=== PATIENT | female | born 1930 | race Caucasian/White ===

== ENCOUNTER 2017-04-19 21:00 | Observation (INO) | payer MEDICARE, OTHER ==
[2017-04-19 21:03] VITALS: BP 147/67; PULSE 74; RESP 18; TEMP 97.9; O2SAT 96
--- NOTE | 2017-04-19 21:09 | PD ---
Physical Exam Time Seen by Provider: 21:07 Narrative 87yo F c/o vaginal bleeding for a few months. Is ion Coumadin. Bleeding was light, on and off, and tonight is more. Denies lightheadedness, dizziness. Patient seen in triage. VS reviewed. Awaiting bed placement. Data Data Last Documented VS Vital Signs Date Time Temp Pulse Resp B/P Pulse Ox O2 Delivery O2 Flow Rate FiO2 04/19/17 21:03 97.9 74 18 147/67 96 Room Air MDM Supervised Visit with DANETTE: Laura Blancas Apr 19, 2017 21:09
[2017-04-19] MEDS ORDERED: SODIUM CHLORIDE 0.9% FLUSH 10 ML FLUSH IVF PRN (21:15)
[2017-04-19 21:20] VITALS: O2SAT 96
--- NOTE | 2017-04-19 21:25 | PD ---
HPI Chief Complaint: Bleeding Time Seen by Provider: 21:12 Travel History International Travel<30 days: No Contact w/Intl Traveler<30days: No Traveled to known affect area: No History of Present Illness HPI This is an 87-year-old female with a history of atrial fibrillation, hypertension, who presents today with complaints of vaginal bleeding 2 days. The patient states it started yesterday with just spotting however today it's increased to a large amount of blood coming from her vagina. The patient denies any history of previous significant vaginal bleeding. She states that a few months ago she had some spotting however never like this before. She denies any shortness of breath and she does report some mild weakness. There is no dizziness or palpitations. There are no other complaints time my examination. PFSH Past Medical History Arthritis: No Asthma: No Atrial Fibrillation: Yes Autoimmune Disease: No Blood Disorders: No Anxiety: No Depression: No Heart Rhythm Problems: Yes (murmur ) Cancer: No High Cholesterol: No Chemotherapy: No Chest Pain: No Congestive Heart Failure: No COPD: No Cerebrovascular Accident: No Diabetes: No Diminished Hearing: No GERD: No Glaucoma: No Headaches: No Hepatitis: No Hiatal Hernia: No Hypertension: No Kidney Stones: No Myocardial Infarction: No Radiation Therapy: No Renal Failure: No Seizures: No Sickle Cell Disease: No Sleep Apnea: No Thyroid Disease: No Ulcer: No ?: Not Past Surgical History Abdominal Surgery: No AICD: No Cardiac Surgery: No Ear Surgery: No Endocrine Surgery: No Eye Surgery: No Genitourinary Surgery: No Gynecologic Surgery: No Oral Surgery: Yes (ROOT CANANL) Pacemaker: No Thoracic Surgery: No Social History Alcohol Use: No Tobacco Use: No (CIGARETTES,QUIT 12 YEARS AGO) Substance Use: No Allergies-Medications (Allergen,Severity, Reaction): Coded Allergies: Sulfa (Verified Allergy, Unknown, UNKNOWN, 04/19/17) Reported Meds & Prescriptions Reported Meds & Active Scripts Active Reported Warfarin 7.5 Mg Tab 7.5 Mg PO MONDAY Warfarin 7.5 Mg Tab 7.5 Mg PO DAILY Warfarin 7.5 Mg Tab 7.5 Mg PO MONDAY Warfarin 5 Mg Tab 5 Mg PO DAILY Amlodipine (Amlodipine Besylate) 5 Mg Tab 5 Mg PO DAILY Metoprolol Tartrate 50 Mg Tab 50 Mg PO BID Ramipril 10 Mg Cap 10 Mg PO DAILY Klor-Con 8 (Potassium Chloride) 8 Meq Tab 8 Meq PO DAILY Hydrochlorothiazide 25 Mg Tab 25 Mg PO DAILY Digoxin 0.25 Mg Tab 0.25 Mg PO DAILY Review of Systems Except as stated in HPI: all other systems reviewed are Neg Eyes: No: Blurred Vision HENT: No: Headaches, Vertigo, Lightheadedness Cardiovascular: Positive: Irregular Rhythm (atrial fibrillation), No: Chest Pain or Discomfort, Palpitations Respiratory: No: Cough, Shortness of Breath Gastrointestinal: No: Nausea, Vomiting, Abdominal Pain Genitourinary: Positive: Vaginal Bleeding (2-3 pads), No: Pelvic Pain, Flank Pain Musculoskeletal: Positive: Weakness, No: Myalgias, Pain Neurologic: Positive: Weakness (mild generalized), No: Dizziness, Syncope, Headache, Change in Mentation Physical Exam Narrative GENERAL: Well-developed well-nourished female in no acute respiratory distress. SKIN: Focused skin assessment warm/dry. HEAD: Atraumatic. Normocephalic. EYES: No scleral icterus. No injection or drainage. Conjunctiva appears slightly pale. ENT: No nasal bleeding or discharge. Mucous membranes pink and moist. NECK: Trachea midline. Supple. CARDIOVASCULAR: Irregularly irregular with a rate in the 60s. There is a 3/6 systolic murmur heard at the sternal border. RESPIRATORY: No accessory muscle use. Clear to auscultation. Breath sounds equal bilaterally. GASTROINTESTINAL: Abdomen soft, non-tender, nondistended. No pulsatile masses or masses appreciated. MUSCULOSKELETAL: No obvious deformities. No clubbing. No cyanosis. Trace pretibial edema bilaterally. NEUROLOGICAL: Awake and alert. No obvious cranial nerve deficits. Motor grossly within normal limits. Normal speech. PSYCHIATRIC: Appropriate mood and affect; insight and judgment normal. Data Data Last Documented VS Vital Signs Date Time Temp Pulse Resp B/P Pulse Ox O2 Delivery O2 Flow Rate FiO2 04/19/17 21:20 96 Room Air 04/19/17 21:03 97.9 74 18 147/67 Orders Complete Blood Count With Diff (04/19/17 21:12) Comprehensive Metabolic Panel (04/19/17 21:12) Prothrombin Time / Inr (Pt) (04/19/17 21:12) Act Partial Throm Time (Ptt) (04/19/17 21:12) Type And Screen (04/19/17 21:12) Ecg Monitoring (04/19/17 21:12) Iv Access Insert/Monitor (04/19/17 21:12) Oximetry (04/19/17 21:12) Sodium Chloride 0.9% Flush (Ns Flush) (04/19/17 21:15) Admit Order (Ed Use Only) (04/19/17 23:55) Labs Laboratory Tests Test 04/19/17 21:25 White Blood Count 8.7 TH/MM3 Red Blood Count 4.64 MIL/MM3 Hemoglobin 13.0 GM/DL Hematocrit 38.7 % Mean Corpuscular Volume 83.4 FL Mean Corpuscular Hemoglobin 28.1 PG Mean Corpuscular Hemoglobin 33.7 % Concent Red Cell Distribution Width 15.6 % Platelet Count 171 TH/MM3 Mean Platelet Volume 8.1 FL Neutrophils (%) (Auto) 74.7 % Lymphocytes (%) (Auto) 15.7 % Monocytes (%) (Auto) 6.7 % Eosinophils (%) (Auto) 2.0 % Basophils (%) (Auto) 0.9 % Neutrophils # (Auto) 6.5 TH/MM3 Lymphocytes # (Auto) 1.4 TH/MM3 Monocytes # (Auto) 0.6 TH/MM3 Eosinophils # (Auto) 0.2 TH/MM3 Basophils # (Auto) 0.1 TH/MM3 CBC Comment DIFF FINAL Differential Comment Prothrombin Time 16.5 SEC Prothromb Time International 1.5 RATIO Ratio Activated Partial 26.4 SEC Thromboplast Time Sodium Level 136 MEQ/L Potassium Level 3.8 MEQ/L Chloride Level 99 MEQ/L Carbon Dioxide Level 30.8 MEQ/L Anion Gap 6 MEQ/L Blood Urea Nitrogen 18 MG/DL Creatinine 1.18 MG/DL Estimat Glomerular Filtration 43 ML/MIN Rate Random Glucose 127 MG/DL Calcium Level 9.2 MG/DL Total Bilirubin 0.5 MG/DL Aspartate Amino Transf 32 U/L (AST/SGOT) Alanine Aminotransferase 25 U/L (ALT/SGPT) Alkaline Phosphatase 92 U/L Total Protein 7.6 GM/DL Albumin 3.2 GM/DL Blood Type A NEGATIVE Antibody Screen NEGATIVE Blood Bank Comment MDM Medical Decision Making Medical Screen Exam Complete: Yes Emergency Medical Condition: Yes Differential Diagnosis Dysfunctional uterine bleeding versus fibroid bleeding versus uterine or cervical cancer. Narrative Course 87-year-old female presents with vaginal bleeding. Patient is on Coumadin for atrial fibrillation. She states she held her Coumadin yesterday. Her INR is 1.5. On pelvic exam she does have a large amount of blood in her vaginal vault. I do not appreciate any lesions. On bimanual examination did not appreciate any uterine masses. She'll be admitted under observation. She'll have a pelvic ultrasound tomorrow. He'll be a CLINICAL CASE MANAGER consult for the vaginal bleeding. She asked if she should still be taking Coumadin and I informed her that I would be up to the admitting physicians and her assembler dry cell and battery. Diagnosis Primary Impression: Vaginal bleeding Additional Impressions: Anticoagulated Atrial fibrillation Shahid Gutierrez MD Apr 19, 2017 21:25
[2017-04-19 21:38] LABS: AUTOMATED NEUTROPHIL # 6.5 TH/MM3 (1.8-7.7); BASOPHIL # 0.1 TH/MM3 (0-0.2); BASOPHIL % 0.9 % (0.0-2.0); EOSINOPHIL # 0.2 TH/MM3 (0-0.4); HEMATOCRIT 38.7 % (35.0-46.0); HEMO FLAGS DIFF FINAL; LYMPH % 15.7 % (9.0-44.0); LYMPHOCYTE # 1.4 TH/MM3 (1.0-4.8); MEAN CELL VOLUME 83.4 FL (80.0-100.0); MEAN CORPUSCULAR HEMOGLOBIN 28.1 PG (27.0-34.0); MEAN CORPUSCULAR HGB CONC 33.7 % (32.0-36.0); MONO % 6.7 % (0.0-8.0); NEUT % 74.7 % (16.0-70.0); PLATELET COUNT 171 TH/MM3 (150-450); RED BLOOD COUNT 4.64 MIL/MM3 (4.00-5.30); RED CELL DISTRIBUTION WIDTH 15.6 % (11.6-17.2); WHITE BLOOD COUNT 8.7 TH/MM3 (4.0-11.0)
[2017-04-19] MEDS ORDERED: WARF-21 PO ×3 (21:44)
[2017-04-19] MEDS ORDERED: DIGO0.25 PO (21:44)
[2017-04-19] MEDS ORDERED: KLOR8TAB PO (21:44)
[2017-04-19] MEDS ORDERED: METO50TA PO (21:44)
[2017-04-19] MEDS ORDERED: WARF-23 PO (21:44)
[2017-04-19] MEDS ORDERED: RAMI10CA PO (21:44)
[2017-04-19] MEDS ORDERED: HYDR25TA5 PO (21:44)
[2017-04-19] MEDS ORDERED: AMLO5TAB2 PO (21:44)
[2017-04-19 21:51] LABS: APTT (PATIENT) 26.4 SEC (24.3-30.1); INTERNATIONAL NORMALIZED RATIO 1.5 RATIO; PROTHROMBIN TIME - PATIENT 16.5 SEC (9.8-11.6)
[2017-04-19 22:05] LABS: ALT (GPT) 25 U/L (10-53)
[2017-04-19 22:07] LABS: ALKALINE PHOSPHATASE 92 U/L (45-117); TOTAL BILIRUBIN ADULT 0.5 MG/DL (0.2-1.0)
[2017-04-19 22:26] LABS: ANION GAP 6 MEQ/L (5-15); AST (GOT) 32 U/L (15-37); BICARBONATE 30.8 MEQ/L (21.0-32.0); BLOOD UREA NITROGEN 18 MG/DL (7-18); CHLORIDE 99 MEQ/L (98-107); GLOMERULAR FILTRATION RATE 43 ML/MIN (>89); SODIUM (NA) 136 MEQ/L (136-145)
[2017-04-19 22:27] LABS: POTASSIUM 3.8 MEQ/L (3.5-5.1)
[2017-04-20] VITALS (12 sets, daily range): BP systolic 130–156; BP diastolic 60–90; PULSE 57–80; RESP 18–20; TEMP 97.6–98.4; O2SAT 93–98
[2017-04-20] MEDS ORDERED: SODIUM CHLORIDE 0.9% FLUSH 10 ML FLUSH IV FLUSH PRN (01:00)
[2017-04-20] MEDS ORDERED: BISACODYL 10 MG SUPP RECTAL PRN (01:00)
[2017-04-20] MEDS ORDERED: NALOXONE HCL 0.4 MG/ML AMP IV PRN (01:00)
[2017-04-20] MEDS ORDERED: ONDANSETRON HCL 4 MG/2 ML VIAL IVP PRN (01:00)
[2017-04-20] MEDS ORDERED: ACETAMINOPHEN 325 MG TAB PO PRN (01:00)
[2017-04-20] MEDS ORDERED: MAGNESIUM HYDROXIDE SUSP 30 ML CUP PO PRN (01:00)
--- NOTE | 2017-04-20 01:36 | PD.CONS ---
HPI Chief Complaint Vaginal bleeding Travel History International Travel<30 Days: No Contact w/Intl Traveler<30Days: No Known Affected Area: No History of Present Illness HPI 87 yo , postmenopausal, presents with c/o vaginal bleeding. Reports bleeding as spotting. Reports spotting for approximately one year, but increased in flow over the last two days. Denies abdominal/pelvic pain. Denies urinary/bowel complaints. Patient has been on Coumadin for several years. Has not seen a Controls Operator Molded Goods in more than 10 years. Para: 5 : 4 History Past Medical History Narrative Medical Hypertension, Afib Obstetric History Obstetric History x 4 Past Surgical History Narrative Surgical Oral surgery Family History Family History: Negative Social History Alcohol Use: No Tobacco Use: No Substance Abuse: No Allergies-Medications (Allergen,Severity, Reaction): Coded Allergies: Sulfa (Verified Allergy, Unknown, UNKNOWN, 04/19/17) Home Meds Reported Medications Warfarin 7.5 Mg Tab7.5 Mg PO MONDAY #30 TAB Ref 0 04/19/17 Warfarin 7.5 Mg Tab7.5 Mg PO DAILY #30 TAB Ref 0 04/19/17 Warfarin 7.5 Mg Tab7.5 Mg PO MONDAY #30 TAB Ref 0 04/19/17 Warfarin 5 Mg Tab5 Mg PO DAILY #30 TAB Ref 0 04/19/17 Amlodipine 5 Mg Tab5 Mg PO DAILY #30 TAB Ref 0 04/19/17 Metoprolol Tartrate 50 Mg Tab50 Mg PO BID #60 TAB Ref 0 04/19/17 Ramipril 10 Mg Cap10 Mg PO DAILY #30 CAP Ref 0 04/19/17 Potassium Chloride ER (Klor-Con 8)8 Meq Tab8 Meq PO DAILY #30 TAB Ref 0 04/19/17 Hydrochlorothiazide 25 Mg Tab25 Mg PO DAILY #30 TAB Ref 0 04/19/17 Digoxin 0.25 Mg Tab0.25 Mg PO DAILY #30 TAB Ref 0 04/19/17 Review of Systems Except as stated in HPI: all other systems reviewed are Neg Physical Exam Vital Signs Date Time Temp Pulse Resp B/P Pulse Ox O2 Delivery O2 Flow Rate FiO2 04/19/17 21:20 96 Room Air 04/19/17 21:03 97.9 74 18 147/67 96 Room Air Narrative GENERAL: Well-nourished, well-developed patient. SKIN: Warm and dry. HEAD: Normocephalic and atraumatic. EYES: No scleral icterus. No injection or drainage. ENT: No nasal drainage noted. Mucous membranes pink. Airway patent. NECK: Supple, trachea midline. No JVD. CARDIOVASCULAR: Regular rate and rhythm without murmurs, gallops, or rubs. RESPIRATORY: Breath sounds equal bilaterally. No accessory muscle use. BREASTS: Bilateral exam showed no masses , no retractions, no nipple discharge. ABDOMEN/GI: Abdomen soft, non-tender, bowel sounds present, no rebound, no guarding Gravid to [-] weeks size Fundal Height: [-] GENITOURINARY: Scant blood in vault, no active bleeding, small uterus, adnexa NT External Genitalia: intact and normal in appearance BUS glands: [-] Cervix: [-] Dilatation: [-] Effacement: [-] Station: [-] Presentation: [-] Membranes: [intact or ruptured] Uterine Contractions: [-] FHT's: Category: [-] Baseline: [-] Reactive: [-] Variability: [-] Decels: [-] EXTREMITIES: No cyanosis or edema. BACK: Nontender without obvious deformity. No CVA tenderness. NEUROLOGICAL: Awake and alert. Motor and sensory grossly within normal limits. Five out of 5 muscle strength in all muscle groups. Normal speech. Data Data Orders Complete Blood Count With Diff (04/19/17 21:12) Comprehensive Metabolic Panel (04/19/17 21:12) Prothrombin Time / Inr (Pt) (04/19/17 21:12) Act Partial Throm Time (Ptt) (04/19/17 21:12) Type And Screen (04/19/17 21:12) Ecg Monitoring (04/19/17 21:12) Iv Access Insert/Monitor (04/19/17 21:12) Oximetry (04/19/17 21:12) Sodium Chloride 0.9% Flush (Ns Flush) (04/19/17 21:15) Admit Order (Ed Use Only) (04/19/17 23:55) Place In Observation (04/20/17 ) Vital Signs (Adult) Q4H (04/20/17 00:48) Activity Oob With Assistance (04/20/17 00:48) Systems Development Consultant / Telemetry .CONTINUOUS (04/20/17 00:48) Diet Heart Healthy (04/20/17 Breakfast) Sodium Chloride 0.9% Flush (Ns Flush) (04/20/17 01:00) Sodium Chloride 0.9% Flush (Ns Flush) (04/20/17 09:00) Acetaminophen (Tylenol) (04/20/17 01:00) Ondansetron Inj (Zofran Inj) (04/20/17 01:00) Basic Metabolic Panel (Bmp) (04/21/17 06:00) Complete Blood Count With Diff (04/21/17 06:00) Resp Oxygen Akil C Titrat 1-4 L (04/20/17 ) Scd Bilateral/Knee High RON.BID (04/20/17 00:48) Naloxone Inj (Narcan Inj) (04/20/17 01:00) Docusate Sodium-Senna (Ivanna-Colace) (04/20/17 09:00) Magnesium Hydroxide Liq (Milk Of Magnesi (04/20/17 01:00) Bisacodyl Supp (Dulcolax Supp) (04/20/17 01:00) Consult Gynecology (04/20/17 ) (Hub Use Only)Inp Phy Cons/Ref (04/20/17 ) Labs Laboratory Tests Test 04/19/17 21:25 White Blood Count 8.7 Red Blood Count 4.64 Hemoglobin 13.0 Hematocrit 38.7 Mean Corpuscular Volume 83.4 Mean Corpuscular Hemoglobin 28.1 Mean Corpuscular Hemoglobin 33.7 Concent Red Cell Distribution Width 15.6 Platelet Count 171 Mean Platelet Volume 8.1 Neutrophils (%) (Auto) 74.7 Lymphocytes (%) (Auto) 15.7 Monocytes (%) (Auto) 6.7 Eosinophils (%) (Auto) 2.0 Basophils (%) (Auto) 0.9 Neutrophils # (Auto) 6.5 Lymphocytes # (Auto) 1.4 Monocytes # (Auto) 0.6 Eosinophils # (Auto) 0.2 Basophils # (Auto) 0.1 CBC Comment DIFF FINAL Differential Comment Prothrombin Time 16.5 Prothromb Time International 1.5 Ratio Activated Partial 26.4 Thromboplast Time Sodium Level 136 Potassium Level 3.8 Chloride Level 99 Carbon Dioxide Level 30.8 Anion Gap 6 Blood Urea Nitrogen 18 Creatinine 1.18 Estimat Glomerular Filtration 43 Rate Random Glucose 127 Calcium Level 9.2 Total Bilirubin 0.5 Aspartate Amino Transf 32 (AST/SGOT) Alanine Aminotransferase 25 (ALT/SGPT) Alkaline Phosphatase 92 Total Protein 7.6 Albumin 3.2 Blood Type A NEGATIVE Antibody Screen NEGATIVE Blood Bank Comment MDM Interpretation(s) Postmenopausal female with vaginal bleeding. Likely due to Coumadin. Pelvic US recommended as Controls Operator [employer]s cancer is a possibility. Needs Controls Operator M[employer]s f/u. All questions answered at the bedside for the patient. Admitting diagnosis: vaginal bleeding, anticoagulated, atrial fibrillation Savanna Santacruz MD Apr 20, 2017 01:36
--- NOTE | 2017-04-20 02:31 | HHI.HP ---
HPI Service [facility] Primary Care Physician No Primary Care Physician Admission Diagnosis vaginal bleeding, anticoagulated, atrial fibrillation Diagnoses: Chief Complaint: vaginal bleeding Travel History International Travel<30 Days: No Contact w/Intl Traveler <30 Da: No Traveled to Known Affected Are: No History of Present Illness Written by Shahla Gauthier, acting as scribe for Dr. Orellana on 04/20/17 at 02: 31. This is a pleasant 87-year-old postmenopausal female patient with past medical history which includes heart murmur, atrial fibrillation on Coumadin current INR 1.5 and hypertension. Patient reports she has had intermittent vaginal bleeding for the past year but reports the amount of vaginal bleeding increased today before she proceeded to the emergency department for further evaluation and treatment. Patient reports she last saw a netting inspector or than 10 years ago. Patient denies abdominal pain, black tarry stools, bright red blood per rectum, gingival bleeding, dizziness, feeling lightheaded, chest pain, shortness of breath, nausea, vomiting, diarrhea, constipation, fevers, chills, changes in appetite or changes in weight. Review of Systems Except as stated in HPI: all other systems reviewed are Neg Past Family Social History Past Medical History 5 para 4, heart murmur, atrial fibrillation on Coumadin current INR 1.5 and hypertension Past Surgical History Denies surgical history Reported Medications Warfarin 7.5 Mg Tab 7.5 Mg PO MONDAY Warfarin 7.5 Mg Tab 7.5 Mg PO DAILY Warfarin 7.5 Mg Tab 7.5 Mg PO MONDAY Warfarin 5 Mg Tab 5 Mg PO DAILY Amlodipine (Amlodipine Besylate) 5 Mg Tab 5 Mg PO DAILY Metoprolol Tartrate 50 Mg Tab 50 Mg PO BID Ramipril 10 Mg Cap 10 Mg PO DAILY Klor-Con 8 (Potassium Chloride) 8 Meq Tab 8 Meq PO DAILY Hydrochlorothiazide 25 Mg Tab 25 Mg PO DAILY Digoxin 0.25 Mg Tab 0.25 Mg PO DAILY Allergies: Coded Allergies: Sulfa (Verified Allergy, Unknown, UNKNOWN, 04/19/17) Active Ordered Medications Current Medications Medications (Trade) Dose Ordered Sig/Isaac Route Start Time Stop Time Status Last Admin (NS Flush) 2 ml UNSCH PRN IV FLUSH 04/20/17 01:00 (NS Flush) 2 ml BID IV FLUSH 04/20/17 09:00 (Tylenol) 650 mg Q4H PRN PO 04/20/17 01:00 (Zofran Inj) 4 mg Q6H PRN IVP 04/20/17 01:00 (Narcan Inj) 0.4 mg UNSCH PRN IV 04/20/17 01:00 (Ivanna-Colace) 1 tab BID PO 04/20/17 09:00 (Milk Of Magnesia Liq) 30 ml Q12H PRN PO 04/20/17 01:00 (Dulcolax Supp) 10 mg DAILY PRN RECTAL 04/20/17 01:00 Family History Daughter has had breast cancer Social History Patient lives at home with 2 of her children Denies EtOH use or illicit drug use Quit tobacco use approximately 12 years ago Physical Exam Vital Signs Vital Signs Date Time Temp Pulse Resp B/P Pulse Ox O2 Delivery O2 Flow Rate FiO2 04/20/17 02:17 97.6 75 20 139/66 95 04/20/17 01:52 151/90 04/19/17 21:20 96 Room Air 04/19/17 21:03 97.9 74 18 147/67 96 Room Air Physical Exam GENERAL: This is a well-nourished, well-developed patient, in no apparent distress. SKIN: No rashes, ecchymoses or lesions. Cool and dry. HEAD: Atraumatic. Normocephalic. No temporal or scalp tenderness. EYES: Extraocular motions intact. No scleral icterus. No injection or drainage. CARDIOVASCULAR: Irregularly irregular with 4-6 murmur noted RESPIRATORY: Clear to auscultation. Breath sounds equal bilaterally. No wheezes , rales, or rhonchi. GASTROINTESTINAL: Abdomen soft, non-tender, nondistended. No guarding. MUSCULOSKELETAL: Trace bilateral lower extremity edema. No calf tenderness. Negative Homans sign bilaterally. NEUROLOGICAL: Awake and alert. No focal deficits appreciated. Motor and sensory grossly within normal limits. Five out of 5 muscle strength in all muscle groups. Normal speech. Laboratory Laboratory Tests Test 04/19/17 21:25 White Blood Count 8.7 Red Blood Count 4.64 Hemoglobin 13.0 Hematocrit 38.7 Mean Corpuscular Volume 83.4 Mean Corpuscular Hemoglobin 28.1 Mean Corpuscular Hemoglobin 33.7 Concent Red Cell Distribution Width 15.6 Platelet Count 171 Mean Platelet Volume 8.1 Neutrophils (%) (Auto) 74.7 Lymphocytes (%) (Auto) 15.7 Monocytes (%) (Auto) 6.7 Eosinophils (%) (Auto) 2.0 Basophils (%) (Auto) 0.9 Neutrophils # (Auto) 6.5 Lymphocytes # (Auto) 1.4 Monocytes # (Auto) 0.6 Eosinophils # (Auto) 0.2 Basophils # (Auto) 0.1 CBC Comment DIFF FINAL Differential Comment Prothrombin Time 16.5 Prothromb Time International 1.5 Ratio Activated Partial 26.4 Thromboplast Time Sodium Level 136 Potassium Level 3.8 Chloride Level 99 Carbon Dioxide Level 30.8 Anion Gap 6 Blood Urea Nitrogen 18 Creatinine 1.18 Estimat Glomerular Filtration 43 Rate Random Glucose 127 Calcium Level 9.2 Total Bilirubin 0.5 Aspartate Amino Transf 32 (AST/SGOT) Alanine Aminotransferase 25 (ALT/SGPT) Alkaline Phosphatase 92 Total Protein 7.6 Albumin 3.2 Blood Type A NEGATIVE Antibody Screen NEGATIVE Blood Bank Comment Result Diagram: 04/19/17212404/19/172124 Assessment and Plan Problem List: (1) Vaginal bleeding ICD Code: N93.9 Status: Acute Assessment and Plan This is a pleasant 87-year-old postmenopausal female patient with past medical history which includes 5 para 4, heart murmur, atrial fibrillation on Coumadin current INR 1.5 and hypertension. Patient reports she has had intermittent vaginal bleeding for the past year but reports the amount of vaginal bleeding increased today. Has a daughter who had breast cancer. Dysfunction uterine bleeding Hold Coumadin at this time Consult MANDREL MAKER Atrial fibrillation- rate controlled Hold Coumadin secondary to vaginal bleeding Continue metoprolol and digoxin Hypertension- chronic Continue ramipril, metoprolol and amlodipine DVT prophylaxis with SCDs Given patient's advanced age and amount of vaginal bleeding it is necessary to place patient in observation and recheck hemoglobin and hematocrit in a.m. Discussed with ER provider, nursing and patient Shahla Gauthier Apr 20, 2017 02:31
[2017-04-20] MEDS: DOCUSATE SODIUM 50 MG/SENNA 8.6 MG TAB PO SCH ×2 (09:00→20:20)
[2017-04-20] MEDS ORDERED: amLODIPine BESYLATE 5 MG TAB PO SCH ×2 (09:00→21:00)
[2017-04-20] MEDS: DIGOXIN 0.25 MG TAB PO SCH (09:55)
[2017-04-20] MEDS: METOPROLOL TARTRATE 50 MG TAB PO SCH ×2 (09:56→20:16)
[2017-04-20] MEDS: RAMIPRIL 5 MG CAP PO SCH (09:56)
[2017-04-20] MEDS: HYDROCHLOROTHIAZIDE 25 MG TAB PO SCH (09:56)
[2017-04-20] MEDS: POTASSIUM CHLORIDE 8 MEQ CONTROLLED RELEASE TAB PO SCH (09:57)
[2017-04-20] MEDS: SODIUM CHLORIDE 0.9% FLUSH 10 ML FLUSH IV FLUSH SCH ×2 (09:57→20:16)
[2017-04-20 10:25] LABS: AUTOMATED NEUTROPHIL # 5.3 TH/MM3 (1.8-7.7); BASOPHIL % 0.4 % (0.0-2.0); EOSINOPHIL # 0.1 TH/MM3 (0-0.4); EOSINOPHIL % 1.7 % (0.0-4.0); HEMATOCRIT 39.2 % (35.0-46.0); HEMO FLAGS DIFF FINAL; LYMPH % 13.5 % (9.0-44.0); LYMPHOCYTE # 0.9 TH/MM3 (1.0-4.8); MEAN CELL VOLUME 83.6 FL (80.0-100.0); MEAN CORPUSCULAR HEMOGLOBIN 28.4 PG (27.0-34.0); MONO % 5.7 % (0.0-8.0); NEUT % 78.7 % (16.0-70.0); PLATELET COUNT 152 TH/MM3 (150-450); RED BLOOD COUNT 4.69 MIL/MM3 (4.00-5.30); RED CELL DISTRIBUTION WIDTH 15.2 % (11.6-17.2); WHITE BLOOD COUNT 6.7 TH/MM3 (4.0-11.0)
[2017-04-20 10:32] LABS: INTERNATIONAL NORMALIZED RATIO 1.3 RATIO; PROTHROMBIN TIME - PATIENT 14.7 SEC (9.8-11.6)
[2017-04-20 10:55] LABS: BICARBONATE 32.8 MEQ/L (21.0-32.0); POTASSIUM 3.2 MEQ/L (3.5-5.1)
[2017-04-20] MEDS ORDERED: DEXTROSE 50% IN WATER 50 ML VIAL(D50) IV PRN (11:15)
[2017-04-20] MEDS ORDERED: GLUCAGON 1 MG/ML VIAL OTHER PRN (11:15)
[2017-04-20] MEDS ORDERED: POTASSIUM CHLORIDE 20 MEQ CONTROLLED RELEASE TAB PO ONE ×2 (11:15→19:00)
--- NOTE | 2017-04-20 11:50 | HHI.PR ---
Subjective Remarks Follow up vaginal bleeding. Patient states the bleeding is very minimal, only slight spoting. She follows with Dr. Ribeiro outpatient for cardiology and she has an appointment next Monday for follow up. Denies any chest pain, sob, fever or chills. Denies dizziness, headaches or dysuria. Patient does complain of generalized weakness when she walks, she feels a little unsteady, has a cane at home but does not use it all the time. Objective Vitals Vital Signs Date Time Temp Pulse Resp B/P Pulse Ox O2 Delivery O2 Flow Rate FiO2 04/20/17 10:06 68 04/20/17 08:20 98 04/20/17 08:03 97.9 70 20 136/66 95 04/20/17 08:00 98 04/20/17 05:30 57 04/20/17 04:38 97.9 63 20 130/60 95 04/20/17 02:17 97.6 75 20 139/66 95 04/20/17 01:52 151/90 04/19/17 21:20 96 Room Air 04/19/17 21:03 97.9 74 18 147/67 96 Room Air Result Diagram: 04/20/17 0959 04/20/17 0959 Objective Remarks GENERAL: This is a well-nourished, pleasant patient, in no apparent distress. SKIN: No rashes, ecchymoses or lesions. Cool and dry. HEAD: Atraumatic. Normocephalic. EYES: Extraocular motions intact. Pupils equal. CARDIOVASCULAR: Irregular rhythm with a blowing 4/6 murmur noted. RESPIRATORY: Clear to auscultation. Breath sounds equal bilaterally. No wheezes , rales, or rhonchi. GASTROINTESTINAL: Abdomen soft, non-tender, nondistended. No guarding. MUSCULOSKELETAL:No edema noted. No calf tenderness. NEUROLOGICAL: Awake and alert. No focal deficits appreciated. Motor and sensory grossly within normal limits. Normal speech. Medications and IVs Current Medications Medications (Trade) Dose Ordered Sig/Isaac Route Start Time Stop Time Status Last Admin (NS Flush) 2 ml UNSCH PRN IV FLUSH 04/20/17 01:00 (NS Flush) 2 ml BID IV FLUSH 04/20/17 09:00 04/20/17 09:57 (Tylenol) 650 mg Q4H PRN PO 04/20/17 01:00 (Zofran Inj) 4 mg Q6H PRN IVP 04/20/17 01:00 (Narcan Inj) 0.4 mg UNSCH PRN IV 04/20/17 01:00 (Ivanna-Colace) 1 tab BID PO 04/20/17 09:00 (Milk Of Magnesia Liq) 30 ml Q12H PRN PO 04/20/17 01:00 (Dulcolax Supp) 10 mg DAILY PRN RECTAL 04/20/17 01:00 (Norvasc) 5 mg DAILY PO 04/20/17 09:00 (Lanoxin) 0.25 mg DAILY PO 04/20/17 09:00 04/20/17 09:55 (Hydrodiuril) 25 mg DAILY PO 04/20/17 09:00 04/20/17 09:56 (Lopressor) 50 mg BID PO 04/20/17 09:00 04/20/17 09:56 (KCl) 8 meq DAILY PO 04/20/17 09:00 04/20/17 09:57 (Altace) 10 mg DAILY PO 04/20/17 09:00 04/20/17 09:56 (D50w (Vial) Inj) 50 ml UNSCH PRN IV 04/20/17 11:15 (Glucagon Inj) 1 mg UNSCH PRN OTHER 04/20/17 11:15 Urinary Catheter: No Vascular Central Line Catheter: No A/P Problem List: (1) Vaginal bleeding ICD Code: N93.9 Status: Acute (2) Generalized weakness ICD Code: R53.1 Status: Acute (3) Subtherapeutic anticoagulation ICD Code: Z51.81 Status: Acute Assessment and Plan This is a pleasant 87-year-old postmenopausal female patient with past medical history which includes 5 para 4, heart murmur, atrial fibrillation on Coumadin current INR 1.5 and hypertension. Patient reports she has had intermittent vaginal bleeding for the past year but reports the amount of vaginal bleeding increased today. Has a daughter who had breast cancer. Dysfunction uterine bleeding, suspected due to Coumadin use Hold Coumadin at this time Consult VEHICLE TRIMMER, electric pile driver operator suggests pelvic US, US shows thickened endometrial stripe. Discussed with Dr. Nicholson who cleared patient for anticoagulation and for patient to follow up outpatient with electric pile driver operator. 1745hrs: Restart Coumadin, monitor for bleeding Atrial fibrillation, rate controlled, chronic Restart home Coumadin dose now, and continue 7.5 Monday and and follow up with Dr. Ribeiro Continue metoprolol and digoxin Follows with Dr. Ribeiro outpatient, has appointment next Monday for follow up Will need outpatient INR at discharge Generalized weakness PT eval and treat, PT recommends [facility] Hypertension, chronic, currently stable Continue ramipril, metoprolol and amlodipine Subtheraputic INR. INR 1.3 Cont home coumadin INR in AM Follow up out patient with Dr. Ribeiro on Monday DVT prophylaxis with SCDs Discharge Planning Discharge possibly tomorrow if no bleeding Marine Fulton Apr 20, 2017 11:50
[2017-04-20] MEDS: INSULIN ASPART SUPPLEMENTAL SCALE SQ SCH ×2 (12:38→20:26)
[2017-04-20 16:13] LABS: HEMOGLOBIN A1a 1.3 %; HEMOGLOBIN Ao 84.1 %; HEMOGLOBIN LA1C 2.2 %; HEMOGLOBIN P3 3.9 %
--- NOTE | 2017-04-20 16:58 | RADRPT ---
EXAM DATE/TIME: 04/20/2017 11:57 [facility] COMPARISON: No previous studies available for comparison. INDICATIONS : Post menopausal vaginal bleeding. MEDICAL HISTORY : Heart murmur. A. FIB. SURGICAL HISTORY : Oral surgery. ENCOUNTER: Initial ACUITY: 1 day PAIN SCORE: 0/10 LOCATION: Bilateral pelvis MEASUREMENTS: UTERUS: 8.3 x 5.6 x 3.8 cm ENDOMETRIAL STRIPE: 20 mm RIGHT OVARY: cm Non visualized LEFT OVARY: cm Non visualized FINDINGS: UTERUS: The endometrium is thickened measuring 2 cm. A small amount of fluid within the endometrial canal obs erved. The uterus is not enlarged. Calcifications are seen involving the cervix. RIGHT OVARY: The ovary is not visualized. No adnexal mass or fluid collection is seen. LEFT OVARY: The ovary is not visualized. No adnexal mass or fluid collection is seen. MISCELLANEOUS: No free fluid. CONCLUSION: 1. Thickened endometrial stripe. 2. Small amount of fluid within the endocervical canal. 3. Lack of visualization of both ovaries. 1. Fran Houston Jr., MD on April 20, 2017 at 16:52 Board Certified Radiologist. This report was verified electronically.
--- NOTE | 2017-04-20 17:22 | HHI.FF ---
Face to Face Verification Diagnosis: (1) Vaginal bleeding (2) Atrial fibrillation (3) Generalized weakness (4) Subtherapeutic anticoagulation Physical Therapy Order: Evaluate and Treat, Improve ambulation, Strength and gait training Home Health Nursing Order: Medical education Signs/symptoms of disease process Medication education-adverse effect Nursing assessment with vital signs Instructions: INR lab I have seen patient Yany Gu on 04/20/17. My clinical findings support the need for the requested home health care services because: Ltd mobility - disease progression Deconditioned w/ increased weakness High risk of falls I certify that my clinical findings support that this patient is homebound because: Impaired cognitive ability/safety Unsteady gait/balance Unsafe to leave home unassisted Unable to use public transportation Marine Fulton Apr 20, 2017 17:22
[2017-04-20] MEDS ORDERED: WARFARIN SOD 7.5 MG TAB PO SCH (19:15)
[2017-04-21 03:50] VITALS: PULSE 66
[2017-04-21 04:59] VITALS: BP 129/58; PULSE 64; RESP 18; TEMP 97.3; O2SAT 95
[2017-04-21 05:05] LABS: HEMATOCRIT 36.6 % (35.0-46.0); REVIEW FLAG FINAL
[2017-04-21 05:23] LABS: INTERNATIONAL NORMALIZED RATIO 1.2 RATIO; PROTHROMBIN TIME - PATIENT 13.7 SEC (9.8-11.6)
[2017-04-21 05:29] LABS: BICARBONATE 31.6 MEQ/L (21.0-32.0); POTASSIUM 3.8 MEQ/L (3.5-5.1)
[2017-04-21] MEDS: INSULIN ASPART SUPPLEMENTAL SCALE SQ SCH (06:45)
[2017-04-21] MEDS: DOCUSATE SODIUM 50 MG/SENNA 8.6 MG TAB PO SCH (09:00)
[2017-04-21] MEDS: POTASSIUM CHLORIDE 8 MEQ CONTROLLED RELEASE TAB PO SCH (09:30)
[2017-04-21] MEDS: RAMIPRIL 5 MG CAP PO SCH (09:30)
[2017-04-21] MEDS: METOPROLOL TARTRATE 50 MG TAB PO SCH (09:31)
[2017-04-21] MEDS: DIGOXIN 0.25 MG TAB PO SCH (09:31)
[2017-04-21] MEDS: HYDROCHLOROTHIAZIDE 25 MG TAB PO SCH (09:31)
[2017-04-21] MEDS: SODIUM CHLORIDE 0.9% FLUSH 10 ML FLUSH IV FLUSH SCH (09:36)
[2017-04-21] MEDS ORDERED: WARF-23 PO (10:36)
[2017-04-21] MEDS ORDERED: WARF-21 PO (10:36)
--- NOTE | 2017-04-21 10:44 | HHI.PR ---
Subjective Remarks Follow up for vaginal bleeding while on anticoagulation. The patient reports only minimal spotting today, vaginal bleed much improved. Denies any abdominal pain. Discussed going back on Coumadin and following up with gynecology as outpatient, may need biopsy, patient verbalized understanding. Also discussed home health care, patient questioned if she need this, explained would like to have PT/INR checked in 2 days and [facility] could likely assist with this, patient agrees. She otherwise has no other medical complaints and wants to go home today. Objective Vitals Vital Signs Date Time Temp Pulse Resp B/P Pulse Ox O2 Delivery O2 Flow Rate FiO2 04/21/17 04:59 97.3 64 18 129/58 95 04/21/17 03:50 66 04/20/17 23:46 98.4 62 18 130/61 97 04/20/17 19:33 97.7 74 20 138/63 93 04/20/17 16:33 97.9 80 20 156/70 95 04/20/17 11:49 98.3 60 149/65 96 Result Diagram: 04/21/17 0428 04/21/17 0428 Imaging Last Impressions Pelvis Ultrasound 04/20/17 0000 Signed Impressions: Service Date/Time: April 11:57 - CONCLUSION: 1. Thickened endometrial stripe. 2. Small amount of fluid within the endocervical canal. 3. Lack of visualization of both ovaries. 1. Fran Houston Jr., MD Objective Remarks GENERAL: Well-nourished, well-developed pleasant elderly female patient in [facility]. SKIN: Warm and dry. No rash. HEENT: Normocephalic. Atraumatic.Pupils equal and round. Mucous membranes pink and moist. NECK: Supple. Trachea midline. CARDIOVASCULAR: Irregular rate and rhythm. 4/6 systolic murmur noted. RESPIRATORY: No accessory muscle use. Clear to auscultation. Breath sounds equal bilaterally. GASTROINTESTINAL: Abdomen soft, non-tender, nondistended. Normoactive bowel sounds x4. MUSCULOSKELETAL: No obvious deformities. Extremities without clubbing, cyanosis , or edema. NEUROLOGICAL: Awake and alert. No obvious cranial nerve deficits. Motor grossly within normal limits. Normal speech. PSYCHIATRIC: Appropriate mood and affect; insight and judgment normal. Procedures None. Medications and IVs Current Medications Medications (Trade) Dose Ordered Sig/Isaac Route Start Time Stop Time Status Last Admin (NS Flush) 2 ml UNSCH PRN IV FLUSH 04/20/17 01:00 (NS Flush) 2 ml BID IV FLUSH 04/20/17 09:00 04/21/17 09:36 (Tylenol) 650 mg Q4H PRN PO 04/20/17 01:00 (Zofran Inj) 4 mg Q6H PRN IVP 04/20/17 01:00 (Narcan Inj) 0.4 mg UNSCH PRN IV 04/20/17 01:00 (Ivnana-Colace) 1 tab BID PO 04/20/17 09:00 (Milk Of Magnesia Liq) 30 ml Q12H PRN PO 04/20/17 01:00 (Dulcolax Supp) 10 mg DAILY PRN RECTAL 04/20/17 01:00 (Lanoxin) 0.25 mg DAILY PO 04/20/17 09:00 04/21/17 09:31 (Hydrodiuril) 25 mg DAILY PO 04/20/17 09:00 04/21/17 09:31 (Lopressor) 50 mg BID PO 04/20/17 09:00 04/21/17 09:31 (KCl) 8 meq DAILY PO 04/20/17 09:00 04/21/17 09:30 (Altace) 10 mg DAILY PO 04/20/17 09:00 04/21/17 09:30 (D50w (Vial) Inj) 50 ml UNSCH PRN IV 04/20/17 11:15 (Glucagon Inj) 1 mg UNSCH PRN OTHER 04/20/17 11:15 (Norvasc) 5 mg HS PO 04/20/17 21:00 04/20/17 20:16 (Coumadin) 7.5 mg TuTh@16 PO 04/20/17 19:15 04/20/17 20:15 (Coumadin) 5 mg SuMoWeFrSa@16 PO 04/21/17 16:00 A/P Problem List: (1) Vaginal bleeding ICD Code: N93.9 Status: Acute (2) Generalized weakness ICD Code: R53.1 Status: Acute (3) Subtherapeutic anticoagulation ICD Code: Z51.81 Status: Acute Assessment and Plan 87-year-old postmenopausal female patient with past medical history which includes 5 para 4, heart murmur, atrial fibrillation on Coumadin current INR 1.5 and hypertension. Patient reports she has had intermittent vaginal bleeding for the past year but reports the amount of vaginal bleeding increased today. Has a daughter who had breast cancer. Dysfunctional uterine bleeding, suspected due to anticoagulation with Coumadin. Initially held coumadin upon arrival Consult [employer] PROFESSOR, suggests pelvic US which showed thickened endometrial stripe. Discussed with Dr. Nicholson who cleared patient for d/c, outpatient follow up with OBGYN Restarted coumadin Atrial fibrillation, rate controlled, chronic Restarted home Coumadin dosing, follow up with Dr. Ribeiro as scheduled on 04/26 Continue metoprolol and digoxin INR subtherapeutic, Will need outpatient INR in 2 days at discharge, [facility] ordered Generalized weakness PT eval and treat, PT recommends [facility], case management arranged Hypertension, chronic, currently stable Continue ramipril, metoprolol and amlodipine Subtheraputic INR. INR 1.3 Cont home coumadin INR still subtherapeutic Follow up out patient with Dr. Ribeiro on Monday DVT prophylaxis with SCDs Discharge Planning Discharge patient to home with [facility] Condition on discharge: Improved Heart Healthy/Coumadin Diet as tolerated Ad Yancy activity Rx written: no changes to meds. Follow-up with primary care physician, gynecology, and hebrew professor Pallavi Holt PA-C Apr 21, 2017 10:44 am
[2017-04-21 11:51] VITALS: BP 129/66; PULSE 64; RESP 18; TEMP 97.9; O2SAT 95
[2017-04-21] MEDS ORDERED: WARFARIN SOD 5 MG TAB PO SCH (16:00)
== END 2017-04-21 14:00 | disposition home or self-care (01) ==
LOC: NEPE 21:00 → NEDA 04-20 00:04 → NEPGCP 04-20 02:05
PROVIDERS: ADMIT Internal Medicine; ATTEND Internal Medicine
DX: N93.8 Other specified abnormal uterine and vaginal bleeding (principal); R79.1 Abnormal coagulation profile; I10 Essential (primary) hypertension; I48.91 Unspecified atrial fibrillation; R53.1 Weakness; Z79.01 Long term (current) use of anticoagulants; Z87.891 Personal history of nicotine dependence; Z88.2 Allergy status to sulfonamides; Z78.0 Asymptomatic menopausal state
CPT/HCPCS: 76856; 80048; 80053; 82948; 83036; 83735; 85014; 85018; 85025; 85610; 85730; 86850; 86900; 86901; 96372; 97161; 99285; G0378; G8987; G8988; J1815

== ENCOUNTER 2017-07-23 12:10 | Emergency (ER) | payer MEDICARE ==
[~2017-07-23] VITALS: Ht 167.6 cm; Wt 74.0 kg
[~2017-07-23 12:10] MED LIST: AMLO5TAB2 PO; DIGO0.25 PO; HYDR25TA5 PO; KLOR8TAB PO; METO50TA PO; RAMI10CA PO; WARF-21 PO; WARF-23 PO
[2017-07-23 12:41] VITALS: BP 139/65; PULSE 89; RESP 18; TEMP 97.2; O2SAT 97
--- NOTE | 2017-07-23 12:48 | PD ---
HPI Chief Complaint: Head Injury Time Seen by Provider: 12:24 Travel History International Travel<30 days: No Contact w/Intl Traveler<30days: No Traveled to known affect area: No History of Present Illness HPI Patient 87-year-old female presents emergency department after slip and fall out of bed. Patient states that last night she was having a nightmare and she rolled away to get away from the oncoming truck in her nightmare and rolled onto the floor. She states she hit her head. She is on Coumadin for history of atrial fibrillation but did have an endometrial ablation recently and it just restarted her Coumadin. She states her target INR 2 and I last checked was 5 days ago and it was 1.4. She denies any headache denies any blurred vision denies any focalized weakness or numbness and tingling in any extremity. Denies any neck pain denies any chest pain abdominal pain shortness of breath PFSH Past Medical History Arthritis: No Asthma: No Atrial Fibrillation: Yes Autoimmune Disease: No Blood Disorders: No Anxiety: No Depression: No Heart Rhythm Problems: Yes (murmur, afib) Cancer: No Cardiovascular Problems: Yes High Cholesterol: No Chemotherapy: No Chest Pain: No Congestive Heart Failure: No COPD: No Cerebrovascular Accident: No Diabetes: No Diminished Hearing: No Endocrine: No GERD: No Glaucoma: No Genitourinary: No Headaches: No Hepatitis: No Hiatal Hernia: No Hypertension: No Immune Disorder: No Kidney Stones: No Musculoskeletal: No Neurologic: No Psychiatric: No Reproductive: No Respiratory: No Myocardial Infarction: No Radiation Therapy: No Renal Failure: No Seizures: No Sickle Cell Disease: No Sleep Apnea: No Thyroid Disease: No Ulcer: No Past Surgical History Abdominal Surgery: No AICD: No Cardiac Surgery: No Ear Surgery: No Endocrine Surgery: No Eye Surgery: No Genitourinary Surgery: No Gynecologic Surgery: No Oral Surgery: Yes (ROOT [facility]NANL) Pacemaker: No Thoracic Surgery: No Social History Alcohol Use: No Tobacco Use: No Substance Use: No Allergies-Medications (Allergen,Severity, Reaction): Coded Allergies: Sulfa (Sulfonamide Antibiotics) (Unverified Allergy, Unknown, UNKNOWN, 08/29) Reported Meds & Prescriptions Reported Meds & Active Scripts Active Warfarin 7.5 Mg Tab 7.5 Mg PO TUTH@1600 Warfarin 5 Mg Tab 5 Mg PO SUMOWEFRSA@1600 Reported Amlodipine (Amlodipine Besylate) 5 Mg Tab 5 Mg PO DAILY Metoprolol Tartrate 50 Mg Tab 50 Mg PO BID Ramipril 10 Mg Cap 10 Mg PO DAILY Klor-Con 8 (Potassium Chloride) 8 Meq Tab 8 Meq PO DAILY Hydrochlorothiazide 25 Mg Tab 25 Mg PO DAILY Digoxin 0.25 Mg Tab 0.25 Mg PO DAILY Review of Systems Except as stated in HPI: all other systems reviewed are Neg Physical Exam Narrative GENERAL: Well-developed well-nourished no obvious distress. SKIN: Focused skin assessment warm/dry. HEAD: No [place] signs no raccoons eyes, there is a frontal contusion.. Normocephalic. EYES: Pupils equal and round. No scleral icterus. No injection or drainage. ENT: No nasal bleeding or discharge. Mucous membranes pink and moist. NECK: Trachea midline. No JVD. CARDIOVASCULAR: Regular rate and rhythm. No murmur appreciated. RESPIRATORY: No accessory muscle use. Clear to auscultation. Breath sounds equal bilaterally. GASTROINTESTINAL: Abdomen soft, non-tender, nondistended. Hepatic and splenic margins not palpable. MUSCULOSKELETAL: No obvious deformities. No clubbing. No cyanosis. No edema. NEUROLOGICAL: Awake and alert. No obvious cranial nerve deficits. Motor grossly within normal limits. Normal speech. PSYCHIATRIC: Appropriate mood and affect; insight and judgment normal. Data Data Last Documented VS Vital Signs Date Time Temp Pulse Resp B/P (MAP) Pulse Ox O2 Delivery O2 Flow Rate FiO2 07/23/17 12:41 97.2 89 18 139/65 (89) [address] Brain W/O Iv Contrast(Rout) (07/23/17 ) Ct Cerv Spine W/O Contrast (07/23/17 ) Prothrombin Time / Inr (Pt) (07/23/17 12:24) Complete Blood Count With Diff (07/23/17 12:24) Labs Laboratory Tests Test 07/23/17 12:45 White Blood Count 7.6 TH/MM3 Red Blood Count 5.04 MIL/MM3 Hemoglobin 13.9 GM/DL Hematocrit 43.2 % Mean Corpuscular Volume 85.7 FL Mean Corpuscular Hemoglobin 27.6 PG Mean Corpuscular Hemoglobin Concent 32.2 % Red Cell Distribution Width 15.6 % Platelet Count 216 TH/MM3 Mean Platelet Volume 7.8 FL Neutrophils (%) (Auto) 78.2 % Lymphocytes (%) (Auto) 13.6 % Monocytes (%) (Auto) 4.7 % Eosinophils (%) (Auto) 1.3 % Basophils (%) (Auto) 2.2 % Neutrophils # (Auto) 5.9 TH/MM3 Lymphocytes # (Auto) 1.0 TH/MM3 Monocytes # (Auto) 0.4 TH/MM3 Eosinophils # (Auto) 0.1 TH/MM3 Basophils # (Auto) 0.2 TH/MM3 CBC Comment DIFF FINAL Differential Comment Prothrombin Time 18.1 SEC Prothromb Time International Ratio 1.6 RATIO MDM Medical Decision Making Medical Screen Exam Complete: Yes Emergency Medical Condition: Yes Differential Diagnosis Fall, closed head injury, supratherapeutic INR, neck injury, intracranial hemorrhage. Narrative Course Patient roomed emergency department, CT head and C-spine negative, INR 1.6. At this time the patient is stable for discharge. Recommend continuing her Coumadin as prescribed and discussed fall prevention. She ended later from the emergency department with her daughter with an even narrow based gait. Diagnosis Primary Impression: Closed head injury Rod Chaparro MD Jul 23, 2017 12:48
[2017-07-23 12:57] LABS: AUTOMATED NEUTROPHIL # 5.9 TH/MM3 (1.8-7.7); BASOPHIL # 0.2 TH/MM3 (0-0.2); BASOPHIL % 2.2 % (0.0-2.0); EOSINOPHIL # 0.1 TH/MM3 (0-0.4); EOSINOPHIL % 1.3 % (0.0-4.0); HEMATOCRIT 43.2 % (35.0-46.0); HEMO FLAGS DIFF FINAL; LYMPH % 13.6 % (9.0-44.0); MEAN CELL VOLUME 85.7 FL (80.0-100.0); MEAN CORPUSCULAR HEMOGLOBIN 27.6 PG (27.0-34.0); MEAN CORPUSCULAR HGB CONC 32.2 % (32.0-36.0); MONO % 4.7 % (0.0-8.0); NEUT % 78.2 % (16.0-70.0); PLATELET COUNT 216 TH/MM3 (150-450); RED BLOOD COUNT 5.04 MIL/MM3 (4.00-5.30); RED CELL DISTRIBUTION WIDTH 15.6 % (11.6-17.2); WHITE BLOOD COUNT 7.6 TH/MM3 (4.0-11.0)
[2017-07-23 13:14] LABS: INTERNATIONAL NORMALIZED RATIO 1.6 RATIO; PROTHROMBIN TIME - PATIENT 18.1 SEC (9.8-11.6)
--- NOTE | 2017-07-23 13:27 | RADRPT ---
EXAM DATE/TIME: 07/23/2017 12:53 [facility] COMPARISON: No previous studies available for comparison. INDICATIONS : Fell out of bed today, hit head RADIATION DOSE: 59.49 CTDIvol (mGy) MEDICAL HISTORY : A-fib, murmur SURGICAL HISTORY : None. ENCOUNTER: Initial ACUITY: 1 day PAIN SCALE: 5/10 LOCATION: cranial TECHNIQUE: Multiple contiguous axial images were obtained of the head. Using automated exposure control and adj ustment of the mA and/or kV according to patient size, radiation dose was kept as low as reasonably a chievable to obtain optimal diagnostic quality images. DICOM format image data is available electro nically for review and comparison. FINDINGS: CEREBRUM: The ventricles are normal for age. No evidence of midline shift, mass lesion, hemorrhage or acute in farction. No extra-axial fluid collections are seen. POSTERIOR FOSSA: The cerebellum and brainstem are intact. The 4th ventricle is midline. The cerebellopontine angle i s unremarkable. EXTRACRANIAL: Soft tissue swelling is noted along the right forehead. The visualized portion of the orbits is intac t. SKULL: The calvaria is intact. No evidence of skull fracture. CONCLUSION: 1. Right forehead soft tissue swelling. 2. No evidence of acute intracranial trauma. 3. No evidence of acute infarct, hemorrhage, mass or edema. Efra Rai MD on July 23, 2017 at 13:24 Board Certified Radiologist. This report was verified electronically.
--- NOTE | 2017-07-23 13:29 | RADRPT ---
EXAM DATE/TIME: 07/23/2017 12:53 [facility] COMPARISON: No previous studies available for comparison. INDICATIONS : Fall out if bed this morning, hit head RADIATION DOSE: 26.15 CTDIvol (mGy) MEDICAL HISTORY : A-fib, murmur SURGICAL HISTORY : None. ENCOUNTER: Initial ACUITY: 1 day PAIN SCALE: 5/10 LOCATION: neck TECHNIQUE: Volumetric scanning of the cervical spine was performed. Multiplanar reconstructions in the sagittal, coronal and oblique axial planes were performed. Using automated exposure control and adjustment o f the mA and/or kV according to patient size, radiation dose was kept as low as reasonably achievable to obtain optimal diagnostic quality images. DICOM format image data is available electronically f or review and comparison. FINDINGS: Craniocervical and cervical vertebral body alignment are well preserved. Vertebral bodies and posterior elements are intact. Facet joints are satisfactory aligned. Mild/moderate joint disease is noted. There is disc space narrowing with mild spondylosis at C4-5, C5 -6 and C6-7. Mild facet arthropathy is identified. CONCLUSION: No acute disease. Mild degenerative disc disease and facet arthropathy. Efra Rai MD on July 23, 2017 at 13:25 Board Certified Radiologist. This report was verified electronically.
== END 2017-07-23 14:30 | disposition home or self-care (01) ==
LOC: PHED 12:10
DX: S09.90XA Unspecified injury of head, initial encounter (principal); I48.91 Unspecified atrial fibrillation; W06.XXXA Fall from bed, initial encounter; Y93.84 Activity, sleeping; Z79.01 Long term (current) use of anticoagulants
CPT/HCPCS: 70450; 72125; 85025; 85610